=== PATIENT | male | born 1980 | race Caucasian/White ===

== ENCOUNTER 2024-02-17 21:56 | Emergency (ER) | payer SELFPAY ==
[~2024-02-17] VITALS: Ht 167.6 cm; Wt 63.5 kg
[2024-02-17 22:13] VITALS: BP_SYST 103; PULSE 81; RESP 20; TEMP 97.8; O2SAT 98
[2024-02-17 23:30] VITALS: BP_SYST 103; PULSE 81; RESP 20; TEMP 97.8; O2SAT 98
[2024-02-17] MEDS ORDERED: HYDR-500 PO (23:32)
[2024-02-17] MEDS ORDERED: OLAN10TA71 PO (23:32)
== END 2024-02-17 23:30 | disposition home or self-care (01) ==
LOC: SED 21:56
DX: F41.9 Anxiety disorder, unspecified (principal); R44.0 Auditory hallucinations; F15.10 Other stimulant abuse, uncomplicated; F32.9 Major depressive disorder, single episode, unspecified; Z79.899 Other long term (current) drug therapy
CPT/HCPCS: 99283

== ENCOUNTER 2024-02-23 02:05 | Emergency (ER) | payer SELFPAY ==
[~2024-02-23] VITALS: Ht 167.6 cm; Wt 69.4 kg
[~2024-02-23 02:05] MED LIST: HYDR-500 PO; OLAN10TA71 PO
[2024-02-23 02:16] VITALS: BP_SYST 133; PULSE 83; RESP 16; TEMP 98.3; O2SAT 97
[2024-02-23] MEDS ORDERED: CEPH250C PO (02:41)
[2024-02-23] MEDS ORDERED: SULF1TAB48 PO (02:41)
[2024-02-23] MEDS: cephALEXin 500 MG CAPSULE PO ONE (02:45)
[2024-02-23] MEDS: DIPHTH,PERTUSS(ACELL),TET VAC 0.5 ML VIAL (Tdap) I.M. ONE (02:47)
[2024-02-23 03:41] VITALS: BP_SYST 133; PULSE 83; RESP 16; TEMP 98.3; O2SAT 97
== END 2024-02-23 03:41 | disposition home or self-care (01) ==
LOC: SED 02:05
DX: S51.812A Laceration without foreign body of left forearm, initial encounter (principal); S60.812A Abrasion of left wrist, initial encounter; S60.811A Abrasion of right wrist, initial encounter; S60.512A Abrasion of left hand, initial encounter; S60.511A Abrasion of right hand, initial encounter; Z23 Encounter for immunization; F32.A Depression, unspecified; F41.9 Anxiety disorder, unspecified; Z79.899 Other long term (current) drug therapy; Z79.2 Long term (current) use of antibiotics; W25.XXXA Contact with sharp glass, initial encounter; Y93.89 Activity, other specified; Y92.89 Other specified places as the place of occurrence of the external cause; Y99.8 Other external cause status
CPT/HCPCS: 90715; 99283